=== PATIENT | female | born 1985 | race Two or more races ===

== ENCOUNTER 2023-12-27 18:14 | Emergency (ER) | payer MEDICAID, OTHER ==
[~2023-12-27] VITALS: Ht 165.1 cm; Wt 134.6 kg
[2023-12-27] MEDS ORDERED: ACET500T58 PO (20:31)
[2023-12-27] MEDS ORDERED: IBUP-1455 PO (20:31)
[2023-12-27 21:10] VITALS: BP 121/71; PULSE 72; RESP 17; TEMP 98; O2SAT 97
[2023-12-27] MEDS: KETOROLAC TROMETH 60MG/2ML VIAL IM ONE (21:15)
[2023-12-27] MEDS: HYDROcodone-ACET 10/325MG TAB PO ONE (21:15)
== END 2023-12-27 21:39 | disposition home or self-care (01) ==
LOC: EDBD 18:14 → ER 18:14
DX: S16.1XXA Strain of muscle, fascia and tendon at neck level, initial encounter (principal); S39.012A Strain of muscle, fascia and tendon of lower back, initial encounter; S30.0XXA Contusion of lower back and pelvis, initial encounter; W18.39XA Other fall on same level, initial encounter; Y93.89 Activity, other specified; Y92.89 Other specified places as the place of occurrence of the external cause; Y99.8 Other external cause status
CPT/HCPCS: 72040; 72100; 96372; 99284; J1885